=== PATIENT | male | born 1945 | race Caucasian/White ===

== ENCOUNTER 2018-05-29 09:48 | Emergency (ER) | payer MEDICARE ==
[~2018-05-29] VITALS: Ht 167.6 cm; Wt 62.2 kg
--- NOTE | 2018-05-29 09:50 | NUR ---
PT AMBULATES TO BED 6
[2018-05-29 09:55] VITALS: BP 133/57
[2018-05-29 10:15] VITALS: BP 133/57
--- NOTE | 2018-05-29 10:20 | NUR ---
BIB with c/o lt rib pain s/p fall last . 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 VSS; PATIENT POSITIONED FOR COMFORT; HOB ELEVATED; BEDRAILS UP X1; BED DOWN. ER MD MADE AWARE OF PT STATUS.
--- NOTE | 2018-05-29 10:37 | NUR ---
Patient being evaluated by physician at bedside.
--- NOTE | 2018-05-29 10:55 | NUR ---
PT TAKEN TO XRAY VIA WHEELCHAIR
[2018-05-29] MEDS ORDERED: IBUPROFEN 800 MG TAB PO ONE (12:10)
== END 2018-05-29 12:20 | disposition home or self-care (01) ==
LOC: MED 09:48
DX: S22.32XA Fracture of one rib, left side, initial encounter for closed fracture (principal); Z85.46 Personal history of malignant neoplasm of prostate; W18.30XA Fall on same level, unspecified, initial encounter; Y93.89 Activity, other specified; Y92.89 Other specified places as the place of occurrence of the external cause; Y99.8 Other external cause status
CPT/HCPCS: 71101; 99283

== ENCOUNTER 2018-05-30 15:01 | Emergency (ER) | payer MEDICARE ==
[~2018-05-30] VITALS: Ht 170.2 cm; Wt 65.8 kg
[2018-05-30 15:10] VITALS: BP 121/65
--- NOTE | 2018-05-30 15:16 | NUR ---
PT AMBULATED TO ER BED 06
--- NOTE | 2018-05-30 15:22 | NUR ---
PATIENT SEEN HERE TWO DAYS AGO FOR RIB FRACTURE WITH X RAYS AND PO MOTRIN. STILL HAVING PAIN. PATIENT IS DEAF AND COMMUNICATES BY WRITING.
[2018-05-30] MEDS ORDERED: MORPHINE SULFATE 4 MG/ML SYR IM ONE (15:25)
--- NOTE | 2018-05-30 15:28 | NUR ---
BIB . COMPLAINING OF chest/RIB pain, left side 5th intercostal space. DENIES N/V/D; SKIN IS PINK/WARM/DRY; AAOX4 WITH EVEN AND STEADY GAIT; LUNGS CLEAR BL; HR EVEN AND REGULAR; PT DENIES ANY FEVER, CP, SOB, OR COUGH AT THIS TIME; PATIENT STATES PAIN OF 0/10 AT THIS TIME; VSS; PATIENT POSITIONED FOR COMFORT; HOB ELEVATED; BEDRAILS UP X2; BED DOWN. ER MD MADE AWARE OF PT STATUS.
[2018-05-30 15:56] VITALS: BP 121/65
== END 2018-05-30 15:57 | disposition home or self-care (01) ==
LOC: MED 15:01
DX: S22.32XA Fracture of one rib, left side, initial encounter for closed fracture (principal); Z85.46 Personal history of malignant neoplasm of prostate; X58.XXXA Exposure to other specified factors, initial encounter; Y93.89 Activity, other specified; Y92.89 Other specified places as the place of occurrence of the external cause; Y99.8 Other external cause status
CPT/HCPCS: 96372; 99283; J2270

== ENCOUNTER 2018-09-23 09:39 | Inpatient (IN) | payer MEDICARE ==
[~2018-09-23] VITALS: Ht 167.6 cm; Wt 60.8 kg
--- NOTE | 2018-09-23 09:43 | NUR ---
PT AMBULATED TO ER BED 8 AT THIS TIME.
[2018-09-23 09:50] VITALS: BP 129/64
--- NOTE | 2018-09-23 10:00 | NUR ---
HARD OF HEARING 73 YR OLD M BIB WITH C/O CONSTIPATION FOR ABOUT A WK W ABOMINAL PAIN 8/10. PER PT HAD A SMALL DIARRHEA TODAY . DENIES N/V/D; SKIN IS PINK/WARM/DRY; AAOX4 WITH EVEN AND STEADY GAIT; LUNGS CLEAR BL; HR EVEN AND REGULAR; PT DENIES ANY FEVER, CP, SOB, OR COUGH AT THIS TIME; PATIENT STATES PAIN OF 8/10 AT THIS TIME; VSS; PATIENT POSITIONED FOR COMFORT; HOB ELEVATED; BEDRAILS UP X2; BED DOWN. ER MD MADE AWARE OF PT STATUS. AT BEDSIDE.
--- NOTE | 2018-09-23 10:50 | NUR ---
Dr. Kirkpatrick evaluating patient at bedside.
[2018-09-23] MEDS ORDERED: MORPHINE SULFATE 4 MG/ML SYR IVP ONE (11:05)
[2018-09-23 11:22] LABS: BASOPHILS % (AUTO) 0.5 % (0.0-2.0); EOSINOPHILS % (AUTO) 0.2 % (0.0-4.0); HEMATOCRIT 44.1 % (36-52); HEMOGLOBIN 14.9 g/dL (12.0-18.0); LYMPHOCYTES # (AUTO) 1.5 K/uL (2.0-11.5); MEAN CORPUSCULAR HEMOGLOBIN 29 pg (27-31); MEAN CORPUSCULAR HGB CONC 34 g/dL (33-37); MEAN CORPUSCULAR VOLUME 87.1 fL (80-94); MONOCYTES # (AUTO) 0.9 K/uL (0.8-1.0); MONOCYTES % (AUTO) 10.2 % (1.7-9.3); NEUTROPHILS # (AUTO) 6.7 K/uL (1.8-7.7); NEUTROPHILS % (AUTO) 73.1 % (42.2-75.2); PLATELET COUNT (AUTO) 341 K/uL (140-450); RED BLOOD CELL COUNT(AUTO) 5.06 MIL/uL (4.20-6.10); RED CELL DISTRIBUTION WIDTH 13.8 % (11.6-13.7); WHITE BLOOD COUNT (AUTO) 9.2 K/uL (4.8-10.8)
[2018-09-23 11:35] LABS: ALBUMIN 3.6 g/dL (3.4-5.0); ANION GAP 12.8 (8-16); ASPARTATE AMINOTRANSFERASE 20 U/L (15-37); CARBON DIOXIDE 29.2 mmol/L (21-32); CHLORIDE 99 mmol/L (98-107); CREATININE 0.8 mg/dL (0.7-1.3); GLUCOSE 119 mg/dL (74-106); LIPASE 96 U/L (73-393); SODIUM SERUM 138 mmol/L (136-145); TOTAL BILIRUBIN 0.9 mg/dL (0.0-1.0); UREA NITROGEN, BLOOD 15 mg/dL (7-18)
--- NOTE | 2018-09-23 12:30 | NUR ---
PT RESTING IN BED, STATED PAIN RELIEVED. AT BEDSIDE.
--- NOTE | 2018-09-23 13:05 | NUR ---
CT CRETICAL REPORT GIVEN TO DR. DELAROSA.
[2018-09-23] MEDS ORDERED: NACL 0.9% 1,000 ML IV ONE (13:30)
[2018-09-23 13:46] LABS: APPEARANCE,URINE CLEAR (CLEAR); BILIRUBIN,URINE NEGATIVE (NEGATIVE); BLOOD, URINE NEGATIVE (NEGATIVE); COLOR,URINE YELLOW (YELLOW); LEUKOCYTE ESTERASE ,URINE NEGATIVE (NEGATIVE); NITRITE, URINE NEGATIVE (NEGATIVE); UGLUCOSE NEGATIVE (NEGATIVE)
[2018-09-23 15:40] VITALS: BP 131/62
--- NOTE | 2018-09-23 15:40 | NUR ---
RECEIVED BEDSIDE REPORT FROM ER NURSE TYRESE. PT STABLE, AWAKE, AND ALERT AND ORIENTED X4. NO SIGNS OF DISTRESS NOTED. NO REDNESS, SWELLING, OR INFLAMMATION NOTED ON IV SITE. BED IN LOWEST POSITION. CALL SOLIMAN WITHIN REACH. SAFETY MEASURES IN PLACE. PLAN OF CARE REVIEWED. FAMILY AT THE BEDSIDE.
--- NOTE | 2018-09-23 15:40 | NUR ---
PT AWAKE, ALERT. TRANSFERRED TO [facility] [address]. REPORT GIVEN TO MARY KAUFMAN. WITH PT. PT WALKED FROM HALLWAY TO ROOM.
[2018-09-23] MEDS ORDERED: DEXT 5% /NACL 0.9% 1,000 ML IV SCH (16:10)
[2018-09-23] MEDS ORDERED: ONDANSETRON 4 MG/2 ML VIAL IVP PRN (16:10)
--- NOTE | 2018-09-23 17:00 | NUR ---
PT STABLE, NO SIGNS OF DISTRESS NOTED. NO OTHER NEEDS AT THIS TIME.
[2018-09-23] MEDS: AMPICILLIN/SULBACTAM 3 GM in NACL 0.9% 100 ML IV SCH ×2 (18:24→23:35)
--- NOTE | 2018-09-23 18:27 | NUR ---
PATIENT LYING DOWN IN BED COMFORTABLY. NO DISTRESS NOTED. FLACC 0. SCHEDULED MEDICATIONS DUE GIVEN. WILL CONTINUE TO MONITOR.
--- NOTE | 2018-09-23 19:10 | NUR ---
ENDORSED PT TO SHAE ESPARZA. PT HAYDE.
--- NOTE | 2018-09-23 19:11 | NUR ---
RECEIVED REPORT FROM DAY SHIFT NURSE MARY COELHO-SHAE AT BEDSIDE. PT RESTING IN BED, AOX40- MUTE/DEAF, ON ROOM AIR WITH RIGHT AC #20G-SL AND LEFT AC #20G. FAMILY AT BEDSIDE AND DISCUSSED PLAN OF CARE. NO S/S OF RESPIRATORY DISTRESS OR DISCOMFORT NOTED AT THIS TIME. BED IN LOWEST POSITION, BED BREAKS ON, BOTH SIDE RAILS UP. BEDSIDE TABLE AND CALL LIGHT ARE WITHIN REACH. WILL CONTINUE TO MONITOR.
[2018-09-23 20:00] VITALS: BP 135/64
--- NOTE | 2018-09-23 20:00 | NUR ---
VITAL SIGNS TAKEN AND TOLERATED WELL. NO S/S OF RESPIRATORY DISTRESS OR DISCOMFORT NOTED AT THIS TIME. WILL CONTINUE TO MONITOR.
--- NOTE | 2018-09-23 22:00 | NUR ---
PT SLEEPING AT THIS TIME. NO S/S OF RESPIRATORY DISTRESS OR DISCOMFORT NOTED AT THIS TIME. WILL CONTINUE TO MONITOR.
[2018-09-23] MEDS: MORPHINE SULFATE 2 MG/ML SYR IVP PRN (23:36)
--- NOTE | 2018-09-23 23:36 | NUR ---
SCHEDULED MEDICATION GIVEN AND TOLERATED WELL. PT C/O ABD PAIN 11/28- MEDICATED WITH MORPHINE. PT TOLERATED WELL. VITAL SIGNS TAKEN AND TOLERATED WELL. NO S/S OF RESPIRATORY DISTRESS OR DISCOMFORT NOTED AT THIS TIME. WILL CONTINUE TO MONITOR.
[2018-09-24] VITALS: BP 119/59
--- NOTE | 2018-09-24 01:00 | NUR ---
ASSISTED PT TO USE URINAL. 200ML OUTPUT. NO S/S OF RESPIRATORY DISTRESS OR DISCOMFORT NOTED AT THIS TIME. WILL CONTINUE TO MONITOR.
--- NOTE | 2018-09-24 02:00 | NUR ---
PT SLEEPING AT THIS TIME. NO S/S OF RESPIRATORY DISTRESS OR DISCOMFORT NOTED AT THIS TIME. WILL CONTINUE TO MONITOR.
--- NOTE | 2018-09-24 04:00 | NUR ---
PT CONTINUES TO SLEEP IN BED. NO S/S OF RESPIRATORY DISTRESS OR DISCOMFORT NOTED AT THIS TIME. WILL CONTINUE TO MONITOR.
[2018-09-24] MEDS: AMPICILLIN/SULBACTAM 3 GM in NACL 0.9% 100 ML IV SCH ×3 (05:01→17:45)
--- NOTE | 2018-09-24 05:01 | NUR ---
SCHEDULED MEDICATION UNASYN GIVEN AND TOLERATED WELL. NO S/S OF RESPIRATORY DISTRESS OR DISCOMFORT NOTED AT THIS TIME. WILL CONTINUE TO MONITOR.
--- NOTE | 2018-09-24 06:56 | NUR ---
DR. DONOHUE IN TO SEE PT. SPOKE WITH PT BROTHER SVETA CASTANON ON THE PHONE REGARDING PLAN OF CARE.
--- NOTE | 2018-09-24 07:04 | NUR ---
ENDORSED PT CARE TO DAY SHIFT NURSE MARY MCNAMARA FOR CONTINUITY OF CARE.
--- NOTE | 2018-09-24 07:05 | NUR ---
RECEIVED BEDSIDE REPORT FROM SHAE ESPARZA. PT STABLE, SLEEPING, BUT EASILY AROUSABLE. NO SIGNS OF DISTRESS NOTED. DENIES PAIN OR SOB. NO REDNESS, SWELLING, OR INFLAMMATION NOTED ON IV SITE. CALL SOLIMAN WITHIN REACH. BED IN LOWEST POSITION. SAFETY MEASURES IN PLACE. PLAN OF CARE REVIEWED.
[2018-09-24 07:29] LABS: BASOPHILS % (AUTO) 0.5 % (0.0-2.0); EOSINOPHILS # (AUTO) 0.1 K/uL (0-0.4); EOSINOPHILS % (AUTO) 0.6 % (0.0-4.0); HEMOGLOBIN 14.5 g/dL (12.0-18.0); LYMPHOCYTES # (AUTO) 1.7 K/uL (2.0-11.5); LYMPHOCYTES % (AUTO) 19.8 % (20.5-51.1); MEAN CORPUSCULAR HEMOGLOBIN 30 pg (27-31); MEAN CORPUSCULAR HGB CONC 34 g/dL (33-37); MONOCYTES % (AUTO) 11.5 % (1.7-9.3); NEUTROPHILS # (AUTO) 5.7 K/uL (1.8-7.7); NEUTROPHILS % (AUTO) 67.6 % (42.2-75.2); PLATELET COUNT (AUTO) 331 K/uL (140-450); RED BLOOD CELL COUNT(AUTO) 4.83 MIL/uL (4.20-6.10); RED CELL DISTRIBUTION WIDTH 13.7 % (11.6-13.7); WHITE BLOOD COUNT (AUTO) 8.4 K/uL (4.8-10.8)
[2018-09-24 08:00] VITALS: BP 156/67
--- NOTE | 2018-09-24 08:25 | NUR ---
PATIENT HAS BEEN SCREENED AND CATEGORIZED MODERATE NUTRITION RISK. PATIENT WILL BE SEEN WITHIN 3-5 DAYS OF ADMISSION. 09/25/18-09/27/[address]
[2018-09-24 08:49] LABS: ASPARTATE AMINOTRANSFERASE 17 U/L (15-37); SODIUM SERUM 140 mmol/L (136-145); TOTAL BILIRUBIN 1.2 mg/dL (0.0-1.0)
[2018-09-24] MEDS: KCL 20 MEQ/WATER INJ PREMIX 100 ML IV SCH ×2 (08:57→11:45)
[2018-09-24] MEDS: MORPHINE SULFATE 2 MG/ML SYR IVP PRN (08:58)
[2018-09-24] MEDS ORDERED: POTASSIUM CHL 40 MEQ/ D5-1/2NS 1,000 ML IV SCH (09:00)
--- NOTE | 2018-09-24 09:00 | NUR ---
ADMINISTERED SCHEDULED MEDICATION AND PRN MORPHINE FOR 7/10 ABDOMINAL PAIN. PT TOLERATED WELL.
[2018-09-24] MEDS ORDERED: SODIUM PHOSPHATE 118 ML ENEM RC SCH (09:04)
[2018-09-24 09:10] LABS: ANION GAP 15.2 (8-16); CARBON DIOXIDE 28.3 mmol/L (21-32); CHLORIDE 99 mmol/L (98-107); GLUCOSE 113 mg/dL (74-106); POTASSIUM 2.5 mmol/L (3.5-5.1); UREA NITROGEN, BLOOD 12 mg/dL (7-18)
[2018-09-24 09:11] LABS: ALBUMIN 3.3 g/dL (3.4-5.0); CREATININE 0.7 mg/dL (0.7-1.3)
[2018-09-24] MEDS ORDERED: fentaNYL 0.05 MG/ML VIAL ONE (09:37)
[2018-09-24] MEDS ORDERED: MIDAZOLAM 2 MG/2 ML VIAL ONE ×2 (09:37→09:38)
[2018-09-24] MEDS: POTASSIUM CHL 20MEQ/D5-NS 1,000 ML IV SCH ×3 (09:42→23:23)
--- NOTE | 2018-09-24 09:47 | NUR ---
ADMINISTERED SCHEDULED MEDICATION, PT TOLERATED WELL. NO OTHER NEEDS AT THIS TIME.
[2018-09-24] MEDS: MAGNESIUM CITRATE 300 ML BTL PO SCH ×2 (10:20→10:30)
[2018-09-24 11:00] VITALS: BP 118/61
--- NOTE | 2018-09-24 11:00 | NUR ---
PT BACK FROM OR, VITALS STABLE.
[2018-09-24] MEDS ORDERED: fentaNYL 0.05 MG/ML VIAL IVP ONE (11:25)
[2018-09-24] MEDS ORDERED: MIDAZOLAM 2 MG/2 ML VIAL IVP ONE (11:25)
--- NOTE | 2018-09-24 11:46 | NUR ---
2ND BAG OF K-RIDER ADMINISTERED PER MD ORDER.
[2018-09-24] MEDS: SENNA 8.6 MG TAB PO SCH ×3 (13:23→20:18)
[2018-09-24] MEDS: POLYETHYLENE GLYCOL 17 GM/PKT PO SCH ×3 (13:24→20:17)
--- NOTE | 2018-09-24 13:32 | NUR ---
ADMINISTERED SCHEDULED MEDICATIONS, PT TOLERATED WELL. NO OTHER NEEDS AT THIS TIME.
--- NOTE | 2018-09-24 15:15 | NUR ---
PT REPOSITIONED, LINENS CHANGED.
[2018-09-24 16:00] VITALS: BP 110/54
[2018-09-24] MEDS ORDERED: MAGNESIUM CITRATE 300 ML BTL PO SCH (16:00)
--- NOTE | 2018-09-24 16:30 | NUR ---
VITAL SIGNS TAKEN, PT STABLE. FAMILY AT THE BEDSIDE.
--- NOTE | 2018-09-24 16:46 | NUR ---
ADMINISTERED SCHEDULED MEDICATIONS, PT TOLERATED WELL.
--- NOTE | 2018-09-24 17:54 | NUR ---
ADMINISTERED SCHEDULED MEDICATIONS, PT TOLERATED WELL.
--- NOTE | 2018-09-24 19:14 | NUR ---
ENDORSED PT TO SHAE ESPARZA FOR CONTINUITY OF CARE. PT STABLE.
[2018-09-24 20:00] VITALS: BP 119/65
--- NOTE | 2018-09-24 20:00 | NUR ---
VITAL SIGNS TAKEN AND TOLERATED WELL. NO S/S OF RESPIRATORY DISTRESS OR DISCOMFORT NOTED AT THIS TIME. WILL CONTINUE TO MONITOR.
[2018-09-24] MEDS: POTASSIUM CHLORIDE 20% 40 MEQ/15 ML UDC PO SCH (20:17)
--- NOTE | 2018-09-24 20:18 | NUR ---
SCHEDULED MEDICATIONS GIVEN AND TOLERATED WELL. NO S/S OF RESPIRATORY DISTRESS OR DISCOMFORT NOTED AT THIS TIME. WILL CONTINUE TO MONITOR.
--- NOTE | 2018-09-24 22:00 | NUR ---
ASSISTED PT TO USE BEDSIDE COMMODE. PT HAD ONE MODERATE SIZE, SOFT AND FORM BROWN BM. NO S/S OF RESPIRATORY DISTRESS OR DISCOMFORT NOTED AT THIS TIME. WILL CONTINUE TO MONITOR.
[2018-09-25] VITALS: BP 118/62
--- NOTE | 2018-09-25 | NUR ---
VITAL SIGNS TAKEN AND TOLERATED WELL. NO S/S OF RESPIRATORY DISTRESS OR DISCOMFORT NOTED AT THIS TIME. WILL CONTINUE TO MONITOR.
[2018-09-25] MEDS: AMPICILLIN/SULBACTAM 3 GM in NACL 0.9% 100 ML IV SCH ×2 (00:11→05:05)
--- NOTE | 2018-09-25 00:11 | NUR ---
SCHEDULED MEDICATION UNASYN GIVEN AND TOLERATED WELL. NO S/S OF RESPIRATORY DISTRESS OR DISCOMFORT NOTED AT THIS TIME. WILL CONTINUE TO MONITOR.
--- NOTE | 2018-09-25 02:00 | NUR ---
PT CONTINUES TO SLEEP IN BED. NO S/S OF RESPIRATORY DISTRESS OR DISCOMFORT NOTED AT THIS TIME. WILL CONTINUE TO MONITOR.
--- NOTE | 2018-09-25 04:00 | NUR ---
PT CONTINUES TO SLEEP IN BED. NO S/S OF RESPIRATORY DISTRESS OR DISCOMFORT NOTED AT THIS TIME. WILL CONTINUE TO MONITOR.
--- NOTE | 2018-09-25 05:05 | NUR ---
SCHEDULED MEDICATION GIVEN AND TOLERATED WELL. NO S/S OF RESPIRATORY DISTRESS OR DISCOMFORT NOTED AT THIS TIME. WILL CONTINUE TO MONITOR.
--- NOTE | 2018-09-25 06:00 | NUR ---
PT RESTING IN BED. NO S/S OF RESPIRATORY DISTRESS OR DISCOMFORT NOTED AT THIS TIME. WILL CONTINUE TO MONITOR.
--- NOTE | 2018-09-25 07:05 | NUR ---
Bedside report given to pm nurse Opal. Addendum: 09/25/18 at 1927 by Tika Wells RN Wrong time input. Pls omit above note.
--- NOTE | 2018-09-25 07:14 | NUR ---
ENDORSED PT CARE TO DAY SHIFT NURSE VALENTINA-RN FOR CONTINUITY OF CARE.
--- NOTE | 2018-09-25 07:15 | NUR ---
Received bedside report from pm nurse Opal. Pt awake, FLACC 0, no signs of distress. Call light within reach.
[2018-09-25 08:00] VITALS: BP 124/55
[2018-09-25 08:01] LABS: BASOPHILS % (AUTO) 0.5 % (0.0-2.0); EOSINOPHILS # (AUTO) 0.1 K/uL (0-0.4); HEMATOCRIT 40.1 % (36-52); HEMOGLOBIN 13.9 g/dL (12.0-18.0); LYMPHOCYTES # (AUTO) 1.4 K/uL (2.0-11.5); LYMPHOCYTES % (AUTO) 16.1 % (20.5-51.1); MEAN CORPUSCULAR HEMOGLOBIN 30 pg (27-31); MEAN CORPUSCULAR HGB CONC 35 g/dL (33-37); MEAN CORPUSCULAR VOLUME 86.4 fL (80-94); MONOCYTES # (AUTO) 0.8 K/uL (0.8-1.0); MONOCYTES % (AUTO) 8.7 % (1.7-9.3); NEUTROPHILS # (AUTO) 6.5 K/uL (1.8-7.7); NEUTROPHILS % (AUTO) 73.7 % (42.2-75.2); PLATELET COUNT (AUTO) 316 K/uL (140-450); RED BLOOD CELL COUNT(AUTO) 4.65 MIL/uL (4.20-6.10); RED CELL DISTRIBUTION WIDTH 13.7 % (11.6-13.7); WHITE BLOOD COUNT (AUTO) 8.8 K/uL (4.8-10.8)
[2018-09-25 08:19] LABS: ANION GAP 11.2 (8-16); CARBON DIOXIDE 31.2 mmol/L (21-32); CHLORIDE 105 mmol/L (98-107); CREATININE 0.7 mg/dL (0.7-1.3); GLUCOSE 103 mg/dL (74-106); POTASSIUM 3.4 mmol/L (3.5-5.1); SODIUM SERUM 144 mmol/L (136-145); UREA NITROGEN, BLOOD 12 mg/dL (7-18)
[2018-09-25] MEDS: POTASSIUM CHLORIDE 20% 40 MEQ/15 ML UDC PO SCH ×2 (09:26→20:57)
[2018-09-25] MEDS: SENNA 8.6 MG TAB PO SCH (09:26)
[2018-09-25] MEDS: POLYETHYLENE GLYCOL 17 GM/PKT PO SCH (09:27)
[2018-09-25] MEDS: POTASSIUM CHL 20MEQ/D5-NS 1,000 ML IV SCH (09:36)
--- NOTE | 2018-09-25 10:00 | NUR ---
Dr. Brennan at bedside assessing pt.
--- NOTE | 2018-09-25 10:15 | NUR ---
Pt with small amt loose brown BM in commode. Pt able to perform adequate pericare independently. No c/o discomfort. Commode emptied & cleaned. Bed alarm on. Call light within reach. Right AC IV intact with ongoing D5NS + K20mEq @ 70ml/hr.
--- NOTE | 2018-09-25 14:40 | NUR ---
Encouraged pt to amb. IVF held at this time. Pt amb around unit with steady gait, with pt. No signs of discomfort.
--- NOTE | 2018-09-25 15:00 | NUR ---
Pt back to bed. IVF resumed. Pt cheerful, no signs of distress, no c/o discomfort. Call light within reach. at bedside.
[2018-09-25 16:00] VITALS: BP 107/49
--- NOTE | 2018-09-25 18:15 | NUR ---
Received call from Dr Singleton with order to obtain consent for surgery tomorrow, & initiate bowel prep (see orders for details) once consent is signed. Orders noted & carried out. Pt notified, writes that he understands the planned procedure explained by doctor & agree with plan of care.
[2018-09-25] MEDS ORDERED: metroNIDAZOLE 500 MG TAB PO SCH ×2 (18:25→20:00)
[2018-09-25] MEDS ORDERED: NEOMYCIN 500 MG TAB PO ONE ×2 (18:25→20:00)
[2018-09-25] MEDS ORDERED: BOWEL EVACUANT DRINK 4,000 ML PDS PO ONE (18:25)
--- NOTE | 2018-09-25 18:45 | NUR ---
Sister at bedside requesting to speak with Dr Singleton re: sx procedure for tomorrow. Per sister, pt is unsure about surgery. Bowel prep & prophylactic neomycin & flagyl not initiated. Dr Singleton paged, awaiting call back to speak with pt's sister.
--- NOTE | 2018-09-25 19:05 | NUR ---
Bedside report given to pm nurse
--- NOTE | 2018-09-25 19:06 | NUR ---
RECEIVED REPORT FROM DAY SHIFT NURSE VALENTINA-RN AT BEDSIDE. PT RESTING IN BED WITH FAMILY AT BEDSIDE, AOX40- MUTE/DEAF, ON ROOM AIR WITH RIGHT AC #20G-SL AND LEFT AC #20G. FAMILY AT BEDSIDE AND DISCUSSED PLAN OF CARE. NO S/S OF RESPIRATORY DISTRESS OR DISCOMFORT NOTED AT THIS TIME. BED IN LOWEST POSITION, BED BREAKS ON, BOTH SIDE RAILS UP. BEDSIDE TABLE AND CALL LIGHT ARE WITHIN REACH. WILL CONTINUE TO MONITOR.
[2018-09-25 20:00] VITALS: BP 110/47
--- NOTE | 2018-09-25 20:00 | NUR ---
VITAL SIGNS TAKEN AND TOLERATED WELL. NO S/S OF RESPIRATORY DISTRESS OR DISCOMFORT NOTED AT THIS TIME. WILL CONTINUE TO MONITOR.
--- NOTE | 2018-09-25 20:25 | NUR ---
DR JETT NOTIFIED THAT PT REFUSING SURGERY IN THE MORNING, STATED THAT NOTIFY THE PRIMARY DOCTOR THAT PT REFUSED SURGERY.
--- NOTE | 2018-09-25 20:58 | NUR ---
SCHEDULED MEDICATION GIVEN AND TOLERATED WELL. NO S/S OF RESPIRATORY DISTRESS OR DISCOMFORT NOTED AT THIS TIME. WILL CONTINUE TO MONITOR.
[2018-09-25] MEDS ORDERED: SENNA 8.6 MG TAB PO SCH (21:00)
--- NOTE | 2018-09-25 21:15 | NUR ---
SPOKE WITH RODNEY WILDER WHO IS ON-CALL FOR DR. ANN AND IS AWARE THAT PT HAS REFUSED SURGERY TOMORROW. NO ADDITIONAL ORDERS.
--- NOTE | 2018-09-25 22:00 | NUR ---
PT SLEEPING IN BED. NO S/S OF RESPIRATORY DISTRESS OR DISCOMFORT NOTED AT THIS TIME. WILL CONTINUE TO MONITOR.
[2018-09-26] VITALS: BP 108/49
--- NOTE | 2018-09-26 | NUR ---
VITAL SIGNS TAKEN AND TOLERATED WELL. NO S/S OF RESPIRATORY DISTRESS OR DISCOMFORT NOTED AT THIS TIME. WILL CONTINUE TO MONITOR.
[2018-09-26] MEDS ORDERED: metroNIDAZOLE 500 MG TAB PO SCH (02:00)
[2018-09-26] MEDS ORDERED: NEOMYCIN 500 MG TAB PO ONE (02:00)
[2018-09-26] MEDS: POTASSIUM CHL 20MEQ/D5-NS 1,000 ML IV SCH (02:00)
--- NOTE | 2018-09-26 02:00 | NUR ---
PT SLEEPING IN BED. NO S/S OF RESPIRATORY DISTRESS OR DISCOMFORT NOTED AT THIS TIME. WILL CONTINUE TO MONITOR.
--- NOTE | 2018-09-26 04:00 | NUR ---
PT CONTINUES TO SLEEP IN BED. NO S/S OF RESPIRATORY DISTRESS OR DISCOMFORT NOTED AT THIS TIME. WILL CONTINUE TO MONITOR.
--- NOTE | 2018-09-26 06:00 | NUR ---
PT CONTINUES TO SLEEP IN BED. NO S/S OF RESPIRATORY DISTRESS OR DISCOMFORT NOTED AT THIS TIME. WILL CONTINUE TO MONITOR.
[2018-09-26 06:48] LABS: CARBON DIOXIDE 27.7 mmol/L (21-32); CHLORIDE 106 mmol/L (98-107); CREATININE 0.6 mg/dL (0.7-1.3); GLUCOSE 114 mg/dL (74-106); POTASSIUM 3.7 mmol/L (3.5-5.1); SODIUM SERUM 141 mmol/L (136-145); UREA NITROGEN, BLOOD 10 mg/dL (7-18)
--- NOTE | 2018-09-26 07:04 | NUR ---
ENDORSED PT CARE TO DAY SHIFT NURSE ROGERIO FOR CONTINUITY OF CARE.
--- NOTE | 2018-09-26 07:13 | NUR ---
RECEIVED PT FROM DIAL EQUIPMENT ENGINEER NURSEVILMA, PT IS AWAKE AND LYING ON THE BED, FALL AND SAFETY PRECAUTION ENFORCED, SIDE RAILS ARE UP AND CALL LIGHT WITHIN REACH, PT HAS PERIPHERAL LINES ON THE LEFT AC G.20, ON SALINE LOCK AND ON THE RT AC G.20 WITH DEXTROSE.15%, CL INFUSING AT 70ML.HR, PT IS DEAF AND MUTE. NO SIGN OF DISTRESS NOTED AND WILL MONITOR PT.
[2018-09-26 08:00] VITALS: BP 105/54
--- NOTE | 2018-09-26 08:28 | NUR ---
PT IS AWAKE AND SEATED ON THE BED WITH SISTER AND BROTHER IN LAW ON THE BEDSIDE, PT DENIES PAIN AND PT AND FAMILY SAID THAT PT DOES NOT WANT ANY SURGERY, PER NIGHT NURSE ENDORSEMENT AND INTERPRETED BY THE FAMILY WELL THRU SIGN LANGUAGE TO PT. WILL NOTIFY MD AND CONTINUE TO MONITOR PT.
--- NOTE | 2018-09-26 08:31 | NUR ---
PAGED DR. ANN REGARDING PT'S AM MEDICATION OF KCL LIQUID 40MEQ, AM LAB SHOWS K LEVEL IS 34.7, AWAITING MD CALL BACK.
--- NOTE | 2018-09-26 08:44 | NUR ---
RECEIVED A CALL BACK FROM IN BEHALF OF DR. ANN'S PT, ASKED ME IF KCL 40MEQ LIQUID WILL STILL BE GIVEN TO PT DESPITE THE K VALUE TODAY OF 3.7 AND SAID, "YES", ACKNOWLEDGED AND WILL CARRY OUT TELEPHONE ORDER OF DR. JONES. [place]
[2018-09-26] MEDS ORDERED: POLYETHYLENE GLYCOL 17 GM/PKT PO SCH (09:00)
[2018-09-26] MEDS: POTASSIUM CHLORIDE 20% 40 MEQ/15 ML UDC PO SCH (10:34)
--- NOTE | 2018-09-26 11:15 | NUR ---
DR. JONES CAME TO THE PT'S ROOM AND SPOKE TO PT, INFORMED PT THAT HE WILL BE DISCHARGED TODAY AND PT NODDED SIGNS OF UNDERSTANDING.
--- NOTE | 2018-09-26 15:55 | NUR ---
DISCHARGED PT WITH SISTER, IV LINES AND ARM BAND REMOVED, DISCHARGED TEACHINGS GIVEN AND PT VERBALIZED UNDERSTANDING PER SIGN GRAIN AND YEAST PLANTS SUPERVISOR. VITAL SIGNS TAKEN AND IS STABLE, PT DENIES PAIN AND IS STABLE AT TIME.
== END 2018-09-26 15:55 | disposition home or self-care (01) | DRG 390 ==
LOC: MED 09:39 → MTU 15:01
PROVIDERS: ADMIT Internal Medicine; ATTEND Internal Medicine
PROC: 0D7N8ZZ Dilation of Sigmoid Colon, Via Natural or Artificial Opening Endoscopic (ICD-10-PCS; principal; 2018-09-24 09:45)
DX: K56.2 Volvulus (principal); E87.6 Hypokalemia; H91.90 Unspecified hearing loss, unspecified ear; K56.41 Fecal impaction; H91.3 Deaf nonspeaking, not elsewhere classified; R94.8 Abnormal results of function studies of other organs and systems; I10 Essential (primary) hypertension; Z85.46 Personal history of malignant neoplasm of prostate
CPT/HCPCS: 36415; 74018; 74021; 80048; 80053; 81003; 83605; 83690; 83735; 85025; 86886; 86900; 86901; 87081; 96361; 96374; 99291; J0295; J2250; J2270; J3010; J3480; J7030; J7042; Q0092; Q9967

== ENCOUNTER 2020-07-08 10:30 | Inpatient (IN) | payer MEDICARE, SELFPAY ==
[~2020-07-08] VITALS: Ht 165.1 cm; Wt 59.9 kg
--- NOTE | 2020-07-08 10:42 | NUR ---
Patient ambulated to bed 4. RN evaluating the patient at bedside.
[2020-07-08 10:43] VITALS: BP 130/84
[2020-07-08] MEDS ORDERED: DIPHENOXYLATE /ATROPINE 2.5 MG TAB PO ONE (11:00)
[2020-07-08] MEDS ORDERED: NACL 0.9% 1,000 ML IV ONE (11:00)
[2020-07-08 11:20] LABS: BASOPHILS % (AUTO) 0.1 % (0.0-2.0); EOSINOPHILS % (AUTO) 0.1 % (0.0-4.0); HEMATOCRIT 48.9 % (36-52); HEMOGLOBIN 16.5 g/dL (12.0-18.0); LYMPHOCYTES # (AUTO) 0.6 K/uL (2.0-11.5); LYMPHOCYTES % (AUTO) 7.3 % (20.5-51.1); MEAN CORPUSCULAR HEMOGLOBIN 30 pg (27-31); MEAN CORPUSCULAR HGB CONC 34 g/dL (33-37); MEAN CORPUSCULAR VOLUME 87.6 fL (80-94); MONOCYTES # (AUTO) 0.4 K/uL (0.8-1.0); MONOCYTES % (AUTO) 5.1 % (1.7-9.3); NEUTROPHILS # (AUTO) 7.5 K/uL (1.8-7.7); NEUTROPHILS % (AUTO) 87.4 % (42.2-75.2); PLATELET COUNT (AUTO) 391 K/uL (140-450); RED BLOOD CELL COUNT(AUTO) 5.58 MIL/uL (4.20-6.10); RED CELL DISTRIBUTION WIDTH 13.8 % (11.6-13.7); WHITE BLOOD COUNT (AUTO) 8.6 K/uL (4.8-10.8)
[2020-07-08 11:38] LABS: ALBUMIN 4.2 g/dL (3.4-5.0); ANION GAP 18.6 (8-16); ASPARTATE AMINOTRANSFERASE 36 U/L (15-37); CARBON DIOXIDE 25.6 mmol/L (21-32); CHLORIDE 95 mmol/L (98-107); CREATININE 0.7 mg/dL (0.6-1.3); GLUCOSE 142 mg/dL (74-106); POTASSIUM 3.2 mmol/L (3.5-5.1); SODIUM SERUM 136 mmol/L (136-145); TOTAL BILIRUBIN 1.4 mg/dL (0.0-1.0); UREA NITROGEN, BLOOD 12 mg/dL (7-18)
--- NOTE | 2020-07-08 12:21 | NUR ---
FAMILY CONTACT INFO SVETA CASTANON (STEP-BROTHER) [phone]
[2020-07-08] MEDS ORDERED: ONDANSETRON 4 MG/2 ML VIAL IVP PRN (13:25)
[2020-07-08] MEDS ORDERED: MORPHINE SULFATE 2 MG/ML SYR IVP PRN (13:25)
[2020-07-08 13:46] LABS: PROTHROMBIN TIME 10.5 secs (10.8-13.4)
[2020-07-08] MEDS: NACL 0.9% 1,000 ML IV SCH ×2 (14:57→23:30)
[2020-07-08] MEDS ORDERED: LIDOCAINE/EPI 1% 1:100000 20 ML VIAL INJ ONE (16:29)
--- NOTE | 2020-07-08 19:30 | NUR ---
RESTING IN BED WITH EYES CLOSED. RESPIRATIONS REGULAR AND UNLABORED. SKIN IS WARM AND DRY.
--- NOTE | 2020-07-08 19:45 | NUR ---
REPORT CALLED TO SHAE BRITTON
--- NOTE | 2020-07-08 20:15 | NUR ---
TRANSFERED TO ROOM 113 VIA GURNEY ACCOMPANIED BY EMT.
[2020-07-08 20:20] VITALS: BP 140/68
--- NOTE | 2020-07-08 20:20 | NUR ---
RECEIVED REPORT FROM ER NURSE ALEX. PT ON MED/SURG, AWAKE AND ALERT, DEAF AND MUTE, ABLE TO WRITE. ON ROOM AIR, NO S/S RESPIRATORY DISTRESS. NO C/O PAIN AT THIS TIME. IV SITE LAC 20G PATENT INTACT. SKIN WARM AND DRY, LUNGS CLEAR, BOWEL SOUNDS ACTIVE, ORIENTED PATIENT TO ROOM AND HOSPITAL. SAFETY MEASURES IN PLACE. CALL LIGHT WITHIN REACH. WILL CONTINUE TO MONITOR. VS: BP 140/68 TEMP 97.4 HR 70 O2 SAT 97% RR 18. DX: SIGMOID VOLVULUS
--- NOTE | 2020-07-08 23:59 | NUR ---
POTASSIUM 3.2, MADE AWARE. NEW ORDERS RECEIVED
[2020-07-09] MEDS: KCL 20 MEQ/WATER INJ PREMIX 200 ML IV SCH ×2 (00:17→03:54)
--- NOTE | 2020-07-09 00:28 | NUR ---
POTASSIUM 40 MEQ IV PER MD, FIRST BAG INFUSING, PT TOLERATING WELL. WILL CONTINUE TO MONITOR
--- NOTE | 2020-07-09 02:00 | NUR ---
PT AWAKE IN BED. DISCUSSED POC VIA WRITING. PT NODDED. NO S/S ACUTE DISTRESS NOTED. WILL CONTINUE TO MONITOR
--- NOTE | 2020-07-09 03:58 | NUR ---
SECOND BAG OF POTASSIUM INFUSING, WILL CONTINUE TO MONITOR PT
[2020-07-09 04:00] VITALS: BP 157/68
--- NOTE | 2020-07-09 04:17 | NUR ---
PT ASLEEP IN BED. RESPIRATIONS EVEN UNLABORED, NO S/S ACUTE DISTRESS NOTED. WILL CONTINUE TO MONITOR
[2020-07-09] MEDS: NACL 0.9% 1,000 ML IV SCH (07:00)
--- NOTE | 2020-07-09 07:06 | NUR ---
ENDORSED PT TO DAY RN FOR CONTINUITY OF CARE. PT IS IN STABLE CONDITION
--- NOTE | 2020-07-09 07:06 | NUR ---
RECEIVED REPORT FROM NIGHT NURSE FOR CONTINUITY OF CARE. PT IS STABLE, PT DEAF AND MUTE. PT HAS LAC 20G INFUSING NS AT 100ML/H, SKIN INTACT. PT HAS TRANSRECTAL TUBE IN PLACE. SAFETY MEASURES IN PLACE, WILL CONTINUE TO MONITOR.
[2020-07-09 08:00] VITALS: BP 145/73
[2020-07-09 08:30] LABS: BASOPHILS % (AUTO) 0.2 % (0.0-2.0); EOSINOPHILS % (AUTO) 0.3 % (0.0-4.0); HEMATOCRIT 46.7 % (36-52); HEMOGLOBIN 15.9 g/dL (12.0-18.0); LYMPHOCYTES # (AUTO) 0.8 K/uL (2.0-11.5); MEAN CORPUSCULAR HEMOGLOBIN 30 pg (27-31); MEAN CORPUSCULAR HGB CONC 34 g/dL (33-37); MEAN CORPUSCULAR VOLUME 87.3 fL (80-94); MONOCYTES # (AUTO) 0.9 K/uL (0.8-1.0); MONOCYTES % (AUTO) 9.6 % (1.7-9.3); NEUTROPHILS # (AUTO) 7.5 K/uL (1.8-7.7); NEUTROPHILS % (AUTO) 80.9 % (42.2-75.2); PLATELET COUNT (AUTO) 353 K/uL (140-450); RED BLOOD CELL COUNT(AUTO) 5.35 MIL/uL (4.20-6.10); RED CELL DISTRIBUTION WIDTH 13.7 % (11.6-13.7); WHITE BLOOD COUNT (AUTO) 9.3 K/uL (4.8-10.8)
--- NOTE | 2020-07-09 09:18 | NUR ---
PATIENT HAS BEEN SCREENED AND CATEGORIZED HIGH NUTRITION RISK. PATIENT WILL BE SEEN WITHIN 1-2 DAYS OF ADMISSION. 07/09/20-07/10/[address]
[2020-07-09 09:58] LABS: ALBUMIN 3.6 g/dL (3.4-5.0); ASPARTATE AMINOTRANSFERASE 26 U/L (15-37); CARBON DIOXIDE 29.2 mmol/L (21-32); CHLORIDE 98 mmol/L (98-107); CREATININE 0.6 mg/dL (0.6-1.3); GLUCOSE 89 mg/dL (74-106); MAGNESIUM 2.3 mg/dL (1.8-2.4); PHOSPHORUS 2.6 mg/dL (2.5-4.9); POTASSIUM 3.2 mmol/L (3.5-5.1); SODIUM SERUM 138 mmol/L (136-145); TOTAL BILIRUBIN 1.3 mg/dL (0.0-1.0); UREA NITROGEN, BLOOD 12 mg/dL (7-18)
--- NOTE | 2020-07-09 10:30 | NUR ---
SOCIAL WORK NOTE: Patient's Orientation Unable To Assess Information Provided By SCOTT CASTANON - SISTER Comments SW WAS UNABLE TO MEET PATIENT AT BEDSIDE TO COMPLETE ASSESSMENT. SW COMPLETED ASSESSMENT WITH SISTER. Grill Cook, Realtionship and Phone Number SCOTT CASTANON SISTER [phone] Healthcare Power of Game Farm Helper No Does Patient Have a POLST No Identifying Problems No Social Work Triggers Is A Social Work Consult Needed No Mandate Report Filed No Explanation Of Identifying Problems PATIENT IS A 75-YEAR-OLD MALE ADMITTED FOR SIGMOID VOLVULUS. PATIENT HAS PMHX OF PROSTATE CANCER. Admitted From Home Pre-Admission Level Of Functioning Status Independent/Ambulatory Prior Resources/Services Used In Last 12 Months No Prior Resources Used Prior DME No Prior DME Used Dialysis Comments N/A Living Situation Apartment Lives With Spouse Other Living Situation/Comment PER SISTER, PATIENT LIVES WITH TREMAINE PENA. Patient Had Caregiver No Home Support No Caregiver Issues Financial Issues No Known Financial Issue Referral To The Financial Counselor Needed No Factors/Needs No D/C Needs Identified Pt/Rep Participated In Discharge Plan Yes Patient/Family Agress With Discharge Plan Yes Discharge Plan Comments TENTATIVE DISCHARGE PLAN IS FOR PATIENT TO RETURN HOME. DC Plan Status Initiated
--- NOTE | 2020-07-09 13:31 | NUR ---
RECEIVED VERBAL ORDER FROM DR DENSON FOR IV FLUIDS, D5 1/2NS WITH 20 MEQ AT 100ML/H. WILL INPUT ORDER AND CARRY IT OUT.
[2020-07-09] MEDS: POTASSIUM CHL 20 MEQ/D5-1/2NS 1,000 ML IV SCH (14:00)
[2020-07-09] MEDS ORDERED: BOWEL EVACUANT DRINK 4,000 ML PDS PO SCH (14:30)
--- NOTE | 2020-07-09 15:30 | NUR ---
ADMINISTERED SCHEDULED MEDICATION, MEDICATION EDUCATION PROVIDED. PT DEAF AND MUTE. PT TOLERATED WELL. PT IS STABLE, WILL CONTINUE TO MONITOR.
[2020-07-09] MEDS ORDERED: POTASSIUM CHLORIDE 20% 40 MEQ/15 ML UDC GT SCH (15:51)
[2020-07-09 16:00] VITALS: BP 142/90
--- NOTE | 2020-07-09 17:20 | NUR ---
ADMINISTERED SCHEDULED MEDICATION, MEDICATION EDUCATION PROVIDED. PT TOLERATED WELL. CHANGED PT'S SOILED SHEETS. PT IS STABLE, WILL CONTINUE TO MONITOR.
--- NOTE | 2020-07-09 18:29 | NUR ---
RECEIVED TORB FROM DR DENSON TO MAKE PT NPO AFTER MIDNIGHT FOR SURGERY. WILL INPUT ORDER AND CARRY IT OUT.
--- NOTE | 2020-07-09 19:20 | NUR ---
RECEIVED REPORT FROM CHULA DE LA ROSA. PT AOX4 ON ROOM AIR, DEAF AND MUTE. NO S/S RESPIRATORY DISTRESS. NO C/O PAIN AT THIS TIME. IV SITE RFA 22G, PATENT AND INTACT. SAFETY MEASURES IN PLACE. CALL LIGHT WITHIN REACH. WILL CONTINUE TO MONITOR
--- NOTE | 2020-07-09 19:20 | NUR ---
ENDORSE PT TO NIGHT NURSE FOR CONTINUITY OF CARE.
[2020-07-09 20:00] VITALS: BP 132/73
--- NOTE | 2020-07-09 21:30 | NUR ---
ASSISTED PT TO DRINK GOLYTELY, TOLERATED WELL. WILL CONTINUE TO MONITOR
--- NOTE | 2020-07-09 23:00 | NUR ---
CLEANED CHANGED REPOSITIONED PT, LIQUID STOOLS NOTED. WILL CONTINUE TO MONITOR
--- NOTE | 2020-07-10 03:49 | NUR ---
PT ASLEEP IN BED. NO S/S ACUTE DISTRESS NOTED. WILL CONTINUE TO MONITOR
[2020-07-10 04:00] VITALS: BP 146/67
--- NOTE | 2020-07-10 07:05 | NUR ---
PT OFF UNIT, PICKED UP AND TRANSFERRED FOR SURGERY BY OR NURSE. PT IS IN STABLE CONDITION, WILL ENDORSE TO DAY RN FOR CONTINUITY OF CARE.
--- NOTE | 2020-07-10 07:10 | NUR ---
REC'D REPORT FROM SENIOR SOFTWARE TEST ENGINEER NURSE, PT CURRENTLY OFF UNIT FOR SURGERY
[2020-07-10] MEDS ORDERED: FUROSEMIDE 40 MG/4 ML VIAL IVP ONE (07:38)
[2020-07-10] MEDS ORDERED: BUPIVACAINE-MPF 0.25% 30 ML VIAL INJ ONE (07:47)
[2020-07-10] MEDS ORDERED: LIDOCAINE MPF 2% 100 MG/5 ML VIAL INJ ONE (07:49)
[2020-07-10] MEDS ORDERED: GLYCOPYRROLATE 0.2 MG/ML VIAL ONE (07:49)
[2020-07-10] MEDS ORDERED: NEOSTIGMINE 1:1000 10 MG/10 ML VIAL ONE (07:49)
[2020-07-10] MEDS ORDERED: SEVOFLURANE 250 ML BTL INH ONE (07:49)
[2020-07-10] MEDS ORDERED: DEXAMETHASONE 4 MG/ML VIAL ONE (07:49)
[2020-07-10] MEDS ORDERED: ONDANSETRON 4 MG/2 ML VIAL ONE (07:49)
[2020-07-10] MEDS ORDERED: SUCCINYLCHOLINE CHLORIDE 200 MG/10 ML VIAL IVP ONE (07:49)
[2020-07-10] MEDS ORDERED: hydrALAZINE 20 MG/ML VIAL ONE (07:49)
[2020-07-10] MEDS ORDERED: ETOMIDATE 20 MG/10 ML VIAL IVP ONE (07:49)
[2020-07-10] MEDS ORDERED: ROCURONIUM 50 MG/5 ML VIAL IV ONE (07:49)
[2020-07-10] MEDS ORDERED: fentaNYL citrate 0.05 MG/ML VIAL ONE (07:49)
[2020-07-10] MEDS ORDERED: LABETALOL 100 MG/20 ML VIAL ONE (07:49)
[2020-07-10] MEDS ORDERED: HYDROcodone/APAP 5/325 MG 1 TAB TAB PO PRN (08:25)
[2020-07-10] MEDS ORDERED: HYDROmorphone 1 MG/ML AMP IVP PRN ×2 (08:25→09:15)
[2020-07-10] MEDS: GABAPENTIN 300 MG CAP PO SCH ×3 (09:00→17:59)
[2020-07-10] MEDS ORDERED: MEPERIDINE 25 MG/ML SYR IVP PRN (09:15)
[2020-07-10] MEDS ORDERED: ONDANSETRON 4 MG/2 ML VIAL IVP PRN (09:15)
[2020-07-10] MEDS: LACTATED RINGERS 1,000 ML IV SCH ×2 (09:15→17:35)
[2020-07-10] MEDS ORDERED: fentaNYL citrate 0.05 MG/ML VIAL IVP PRN (09:15)
[2020-07-10] MEDS ORDERED: diphenhydrAMINE 50 MG/ML VIAL IVP PRN (09:15)
--- NOTE | 2020-07-10 10:45 | NUR ---
REC'D PT FROM OR. PT STABLE,RA, VITAL SIGNS TAKE SEE CHART, NO SIGN OF DISTRESS. PT HAS SCD IN PLACE, VERDUGO CATHETER. 1700ML IN OR. EBL 20. HAS R. LOWER ABDOMEN HORIZONTAL 8CM, NO ENEIDA, DERMABOND.
[2020-07-10] MEDS: ACETAMINOPHEN EXTRA STRENGTH 500 MG TAB PO SCH ×3 (13:19→21:25)
[2020-07-10] MEDS: IBUPROFEN 400 MG TAB PO SCH ×3 (13:19→21:24)
[2020-07-10] MEDS: POTASSIUM CHL 20 MEQ/D5-1/2NS 1,000 ML IV SCH ×3 (14:00→20:00)
--- NOTE | 2020-07-10 15:40 | NUR ---
DC PLANNIN YRS OLD MALE PATIENT WAS ADMITTED FROM HOME WITH A DX OF SIGMOID VOLVULUS. PT HAS A HX OF MUTE AND DEAF. PT UNDERWENT SIGMOID COLECTOMY POSSIBLE OSTOMY. JENIFFER PLAN TO GO HOME WITH HOME HEALTH BRANDON TO FOLLOW Addendum: 07/12/20 at 1203 by Yasemin Almazan CM JENIFFER CONKLIN: FAXED ORDER FOR HOME HEALTH TO KELLY AT [facility] [place] [phone]. WILL FOLLOW UP. Addendum: 07/12/20 at 1244 by Yasemin Almazan CM JENIFFER CONKLIN: BRANDON MENDOZA AT [facility] PROVIDED AUTH FOR [facility] [phone]. SPOKE TO DAGOBERTO [facility] HER IT SECURITY ADMINISTRATOR IS STILL REVIEWING. Addendum: 07/12/20 at 1428 by Yasemin Almazan CM JENIFFER CONKLIN: [facility] CAN NOT ACCEPT THIS PATIENT DUE TO CONCERNS OF HIM BEING . NOTIFIED BRANDON MENDOZA AT [facility]. Addendum: 07/12/20 at 1513 by Yasemin Almazan CM JENIFFER CONKLIN: BRANDON MENDOZA PROVIDED ME WITH ANOTHER HOME HEALTH AGENCY. [employer] [phone], SPOKE TO OCTAVIO AT [facility] THEY ARE REVIEWING CLINICALS. Addendum: 07/12/20 at 4664 by Yasemin Almazan CM JENIFFER CONKLIN: FOLLOWED UP WITH OCTAVIO AT [facility] [phone] THEY ARE ABLE TO ACCEPT THIS PATIENT. SHE STATED THAT SHE ALREADY HAS AUTH. NOTIFIED SHAE MANUEL
--- NOTE | 2020-07-10 16:08 | NUR ---
07/10/20 RD INITIAL ASSESSMENT COMPLETED PLEASE REFER TO NUTRITION ASSESSMENT UNDER CARE ACTIVITY FOR ESTIMATED NUTRITIONAL NEEDS. 1. CONTINUE FULL DIET WHEN MEDICALLY APPROPRIATE 2. CONSIDER ENSURE BID 3. GRADUALLY ADVANCE TO LOW RESIDUAL SOFT DIET 4. RD TO FOLLOW-UP 2-3 DAYS, HIGH RISK TRICIA ASHBY, RD
--- NOTE | 2020-07-10 17:20 | NUR ---
PT STABLE, CURRENTLY SLEEPING, NO SIGN OF DISTRESS
--- NOTE | 2020-07-10 19:15 | NUR ---
RECEIVED BEDSIDE REPORT FROM DAY SHIFT NURSE FOR CONTINUITY OF CARE. PT IS AWAKE AND ALERT, A&OX4. PT IS DEAF AND MUTE. PAPER AT BEDSIDE FOR WRITING FOR COMMUNICATION. ON RA WITH BREATHING UNLABORED. VERDUGO CATH IN PLACE. S/P SIGMOID COLECTOMY TODAY WITH DERMABOND IN PLACE, NETWORK ADMIN. SKIN IS WARM AND DRY. PT IS STABLE. FALL PRECAUTIONS IN PLACE. SCD'S IN PLACE. PLAN OF CARE DISCUSSED.
--- NOTE | 2020-07-10 19:30 | NUR ---
ENDORSED PT TO FIELD SERVICER NURSE, PT STABLE
[2020-07-10 20:00] VITALS: BP 102/57
--- NOTE | 2020-07-10 21:30 | NUR ---
PT IS STABLE AT THIS TIME. RESTING IN SEMI FOWLERS POSITION. VERDUGO CATH IN PLACE. ASSESSED SURGICAL INCISION. NO ENEIDA, DERMABOND. PT STATES HE IS OKAY RIGHT NOW AND DOESN'T NEED ANYTHING THROUGH WRITING.
--- NOTE | 2020-07-10 23:26 | NUR ---
MADE ROUNDS ON PT. HE IS SLEEPING COMFORTABLY. NO PAIN NOTED. BED IN THE LOWEST POSITION AND CALL LIGHT WITHIN REACH. IV FLUIDS INFUSING ORDERED. WILL CONTINUE TO MONITOR.
[2020-07-11] MEDS: POTASSIUM CHL 20 MEQ/D5-1/2NS 1,000 ML IV SCH (00:21)
--- NOTE | 2020-07-11 01:29 | NUR ---
FLUIDS WERE CHANGED. IV IS STILL PATENT AND INFUSING. BED IS IN THE LOWEST POSITION. FREQUENT ROUNDS. PT IS NOT IN ANY DISTRESS.
[2020-07-11] MEDS: LACTATED RINGERS 1,000 ML IV SCH (01:55)
--- NOTE | 2020-07-11 03:30 | NUR ---
PT IS SLEEPING. NO DISTRESS NOTED. WATER WAS REFILLED. PAPER AND PEN AT BEDSIDE FOR COMMUNICATING. VERDUGO IN PLACE. IV FLUIDS INFUSING. BED IS IN THE LOWEST POSITION AND CALL LIGHT WITHIN REACH.
[2020-07-11 04:00] VITALS: BP 118/63
--- NOTE | 2020-07-11 05:30 | NUR ---
PT IS AWAKE. WRITING APPROPRIATELY. INFORMED ME THAT HE IS NOW PASSING GAS AND WOULD LIKE TO GO HOME SOON. WILL TELL DR. DENSON, SURGEON ON CASE. PT IS STABLE AT THIS TIME.
--- NOTE | 2020-07-11 06:00 | NUR ---
DR. DENSON AT BEDSIDE TO SEE PT. DR. DENSON ORDERED TO DC FLUIDS- SALINE LOCK, DC VERDUGO CATH, AND ADVANCE TO SOFT DIET. HE ALSO ORDERED PT TO PRACTICE WITH INCENTIVE SPIROMETER AND TO WALK AROUND THE [place]OR[place] FIVE TIMES TODAY. SHOWED PT HOW TO USE THE IS AND INSTRUCTIONS WERE WRITTEN DOWN FOR PT. PT DEMONSTRATED USE FOR ME. VERDUGO CATHETER WAS REMOVED. NO PAIN NOTED. WILL ENDORSE TO DAY SHIFT TO MONITOR FOR URINE OUTPUT.
[2020-07-11] MEDS: ACETAMINOPHEN EXTRA STRENGTH 500 MG TAB PO SCH ×4 (06:33→21:19)
[2020-07-11] MEDS: IBUPROFEN 400 MG TAB PO SCH ×4 (06:33→21:19)
--- NOTE | 2020-07-11 07:25 | NUR ---
RECEIVED PATIENT FROM NIGHT NURSE. PATIENT IN BED SLEEPING, CHEST NOTED RISING. NO NOTED ACUTE S/S DISTRESS. RESP EVEN AND UNLABORED ON RA. HOB ELEVATED. SAFETY MEASURES IN PLACE. CALL LIGHT WITHIN REACH. WILL CONTINUE TO MONITOR.
--- NOTE | 2020-07-11 07:30 | NUR ---
ENDORSED PT TO DAY SHIFT NURSE FOR CONTINUITY OF CARE. PT IS STABLE AT THIS TIME. INFORMED THE NURSE TO WATCH FOR URINE OUTPUT I JUST REMOVED VERDUGO. PLAN OF CARE DISCUSSED.
[2020-07-11 09:22] LABS: BASOPHILS % (AUTO) 0.3 % (0.0-2.0); EOSINOPHILS # (AUTO) 0.1 K/uL (0-0.4); EOSINOPHILS % (AUTO) 1.1 % (0.0-4.0); HEMATOCRIT 39.9 % (36-52); HEMOGLOBIN 13.5 g/dL (12.0-18.0); LYMPHOCYTES # (AUTO) 1.5 K/uL (2.0-11.5); LYMPHOCYTES % (AUTO) 18.1 % (20.5-51.1); MEAN CORPUSCULAR HEMOGLOBIN 30 pg (27-31); MEAN CORPUSCULAR HGB CONC 34 g/dL (33-37); MEAN CORPUSCULAR VOLUME 87.8 fL (80-94); MONOCYTES # (AUTO) 0.9 K/uL (0.8-1.0); MONOCYTES % (AUTO) 10.4 % (1.7-9.3); NEUTROPHILS # (AUTO) 5.9 K/uL (1.8-7.7); NEUTROPHILS % (AUTO) 70.1 % (42.2-75.2); PLATELET COUNT (AUTO) 288 K/uL (140-450); RED BLOOD CELL COUNT(AUTO) 4.55 MIL/uL (4.20-6.10); RED CELL DISTRIBUTION WIDTH 13.8 % (11.6-13.7); WHITE BLOOD COUNT (AUTO) 8.5 K/uL (4.8-10.8)
[2020-07-11] MEDS: GABAPENTIN 300 MG CAP PO SCH ×3 (09:33→16:57)
--- NOTE | 2020-07-11 09:35 | NUR ---
PATIENT SITTING UP IN BED AWAKE AND ALERT EATING BREAKFAST. PATIENT TOLERATED WELL. MORNING ROUTINE MEDICATIONS GIVEN. PATIENT TOLERATED WELL. RH 24G INTACT AND PATENT, SL. RESP EVEN AND UNLABORED. NO NOTED DISTRESS. PLAN OF CARE DISCUSSED, PATIENT NODDED UNDERSTANDING. PATIENT IS MUTE AND DEAF. COMMUNICATIONS VIA WRITING. CALL LIGHT WITHIN REACH. WILL CONTINUE TO MONITOR.
[2020-07-11 09:55] LABS: ANION GAP 5.9 (8-16); CARBON DIOXIDE 35.6 mmol/L (21-32); CHLORIDE 104 mmol/L (98-107); CREATININE 0.8 mg/dL (0.6-1.3); GLUCOSE 129 mg/dL (74-106); POTASSIUM 3.5 mmol/L (3.5-5.1); SODIUM SERUM 142 mmol/L (136-145); UREA NITROGEN, BLOOD 7 mg/dL (7-18)
--- NOTE | 2020-07-11 12:25 | NUR ---
PT IN BED SLEEPING, CHEST NOTED RISING. NO ACUTE S/S DISTRESS. CALL LIGHT WITHIN REACH. WILL CONTINUE TO MONITOR.
--- NOTE | 2020-07-11 14:35 | NUR ---
PATIENT IN BED SLEEPING, CHEST NOTED RISING. NO ACUTE S/S DISTRESS. CALL LIGHT WITHIN REACH. WILL CONTINUE TO MONITOR.
[2020-07-11 16:00] VITALS: BP 113/57
--- NOTE | 2020-07-11 18:25 | NUR ---
PATIENT ASSISTED GETTING OUT OF BED, SITTING BY BEDSIDE, WALKING TO CHAIR AND AROUND THE BED TWICE. PATIENT AMBULATING WITH SLOW AND STEADY GAIT. NO DIZZINESS REPORTED. PAIN IS TOLERABLE. DENIED OF ANY SOB. NO NOTED DISTRESS. PATIENT SITTING BY BEDSIDE EATING DINNER. CALL LIGHT WITHIN REACH. ENCOURAGED TO CALL FOR HELP GETTING INTO BED. PATIENT NODDED UNDERSTANDING.
--- NOTE | 2020-07-11 19:15 | NUR ---
ENDORSED PATIENT TO NIGHT NURSE. PATIENT IN STABLE CONDITION
--- NOTE | 2020-07-11 19:16 | NUR ---
RECEIVED BEDSIDE ENDORSEMENT FROM AM SHIFT RN. AOX4, DEAF AND MUTE, ON ROOM AIR, NO SOB, AMBULATORY, SAFETY MEASURES IN PLACE, PLAN OF CARE DISCUSSED, CALL LIGHT WITHIN REACH.
[2020-07-11 20:00] VITALS: BP 117/47
--- NOTE | 2020-07-11 21:23 | NUR ---
DUE MEDS GIVEN ORDERED, TOLERATED WELL, CALL LIGHT WITHIN REACH.
--- NOTE | 2020-07-12 | NUR ---
ASLEEP, RESPIRATION EVEN AND UNLABORED, CALL LIGHT WITHIN REACH.
[2020-07-12] MEDS: ACETAMINOPHEN EXTRA STRENGTH 500 MG TAB PO SCH ×3 (06:36→16:46)
[2020-07-12] MEDS: IBUPROFEN 400 MG TAB PO SCH ×3 (06:36→16:46)
[2020-07-12 06:41] LABS: BASOPHILS % (AUTO) 0.3 % (0.0-2.0); EOSINOPHILS # (AUTO) 0.3 K/uL (0-0.4); EOSINOPHILS % (AUTO) 4.1 % (0.0-4.0); HEMATOCRIT 42.2 % (36-52); HEMOGLOBIN 14.2 g/dL (12.0-18.0); LYMPHOCYTES # (AUTO) 1.1 K/uL (2.0-11.5); MEAN CORPUSCULAR HEMOGLOBIN 30 pg (27-31); MEAN CORPUSCULAR HGB CONC 34 g/dL (33-37); MEAN CORPUSCULAR VOLUME 88.5 fL (80-94); MONOCYTES # (AUTO) 0.6 K/uL (0.8-1.0); NEUTROPHILS # (AUTO) 5.3 K/uL (1.8-7.7); NEUTROPHILS % (AUTO) 72.6 % (42.2-75.2); PLATELET COUNT (AUTO) 285 K/uL (140-450); RED BLOOD CELL COUNT(AUTO) 4.77 MIL/uL (4.20-6.10); RED CELL DISTRIBUTION WIDTH 13.7 % (11.6-13.7); WHITE BLOOD COUNT (AUTO) 7.3 K/uL (4.8-10.8)
--- NOTE | 2020-07-12 06:42 | NUR ---
WOKE UP PT, DUE MEDS GIVEN ORDERED, TOLERATED WELL, CALL LIGHT WITHIN REACH.
--- NOTE | 2020-07-12 07:30 | NUR ---
PT STABLE, BEDSIDE ENDORSEMENT GIVEN TO AM SHIFT RN FOR CONTINUITY OF CARE.
--- NOTE | 2020-07-12 07:32 | NUR ---
RECEIVED REPORT FROM NIGHT NURSE PATIENT IS AAOX4, ON ROOM AIR, SKIN INTACT, IV INTACT ON LEFT AC S/P CT ABDOMEN AND PELVIS WITH CONTRAST, FOR CT ABDOMEN WITH OR WITHOUT CONTRAST, NO CONSENT , AMBULATORY. SAFETY MEASURES IN PLACE AND CALL LIGHT WITHIN REACH WILL CONTINUE TO MONITOR.
[2020-07-12 07:58] LABS: ANION GAP 8.1 (8-16); CARBON DIOXIDE 34.6 mmol/L (21-32); CHLORIDE 104 mmol/L (98-107); CREATININE 0.6 mg/dL (0.6-1.3); GLUCOSE 117 mg/dL (74-106); POTASSIUM 3.7 mmol/L (3.5-5.1); SODIUM SERUM 143 mmol/L (136-145); UREA NITROGEN, BLOOD 8 mg/dL (7-18)
[2020-07-12] MEDS: GABAPENTIN 300 MG CAP PO SCH ×3 (09:06→16:46)
--- NOTE | 2020-07-12 09:12 | NUR ---
MEDICATION DUE GIVEN NO DISTRESS NOTED AND DENIES PAIN. SAFETY MEASURES IN PLACE AND CALL LIGHT WITHIN REACH. WILL CONTINUE TO MONITOR.
--- NOTE | 2020-07-12 11:50 | NUR ---
MEDICATIONS DUE GIVEN TO PATIENT. NO SIGNS OF DISTRESS. PT IN STABLE CONDITION. WILL CONTINUE TO MONITOR NEEDED.
[2020-07-12 16:00] VITALS: BP 144/70
--- NOTE | 2020-07-12 16:50 | NUR ---
MEDICATIONS DUE GIVEN TO PATIENT PRIOR TO DISCHARGE TO HOME. PATIENT IS STABLE IN CONDITION. NO SIGNS OF DISTRESS NOTED. SAFETY MEASURES ARE IN PLACE. CALL LIGHT WITHIN REACH.
--- NOTE | 2020-07-12 18:00 | NUR ---
DISCHARFGED INSTRUCTIONS GIVEN TO PATIENT AT BEDSIDE AND ENCOURAGED TO FOLLOW UP WITH PCP WITH IN 3-5 DAYS AND TO SEEK MEDICAL HELP IN CASE OF EMERGENCIES, IV INTACT AND NO BLEEDING.REMOVED ID BANDS AND CHANGED PT CLOTHES TO OWN CLOTHES, ANSWERED PT QUESTION, ESCORTED PATIENT TO FRONT LOBBY VIA WHEELCHAIR, PHOTOGRAPH TAKEN, PATIENT IS GOING TO BE DISCHARGED HOME, ACCOMPANIED BY FAMILY, PT IS STABLE,
== END 2020-07-12 18:00 | disposition home health service (06) | DRG 330 ==
LOC: MED 10:30 → MMU 13:44 → MTU 20:09
PROVIDERS: ADMIT Hospitalist; ATTEND Hospitalist
PROC: 0D9Q70Z Drainage of Anus with Drainage Device, Via Natural or Artificial Opening (ICD-10-PCS; 2020-07-08)
PROC: 0DBN0ZZ Excision of Sigmoid Colon, Open Approach (ICD-10-PCS; principal; 2020-07-10 07:30)
DX: K56.2 Volvulus (principal); Q43.8 Other specified congenital malformations of intestine; E87.6 Hypokalemia; H91.3 Deaf nonspeaking, not elsewhere classified; I10 Essential (primary) hypertension; E78.5 Hyperlipidemia, unspecified; Z20.822 Contact with and (suspected) exposure to COVID-19; Z85.46 Personal history of malignant neoplasm of prostate
CPT/HCPCS: 36415; 71045; 74018; 80048; 80053; 83735; 84100; 85025; 85610; 85730; 86886; 86900; 86901; 87081; 88307; 93005; 97110; 97116; 97161-GP; 99285; J0330; J0360; J1100; J1940; J2001; J2270; J2405; J2710; J3010; J3480; J3490; U0003

== ENCOUNTER 2022-06-03 15:41 | Emergency (ER) | payer MEDICARE ==
[~2022-06-03] VITALS: Ht 177.8 cm; Wt 77.1 kg
[2022-06-03 15:45] VITALS: BP 136/62
[2022-06-03] MEDS: ACETAMINOPHEN EXTRA STRENGTH 500 MG TAB PO ONE (16:51)
[2022-06-03] MEDS ORDERED: BACI-416 TP (18:33)
[2022-06-03 19:00] VITALS: BP 134/62
== END 2022-06-03 19:07 | disposition home or self-care (01) ==
LOC: MED 15:41
DX: S80.01XA Contusion of right knee, initial encounter (principal); S60.211A Contusion of right wrist, initial encounter; S60.221A Contusion of right hand, initial encounter; S00.81XA Abrasion of other part of head, initial encounter; I10 Essential (primary) hypertension; H91.90 Unspecified hearing loss, unspecified ear; Z85.46 Personal history of malignant neoplasm of prostate; Z79.899 Other long term (current) drug therapy; W19.XXXA Unspecified fall, initial encounter; Y93.89 Activity, other specified; Y92.89 Other specified places as the place of occurrence of the external cause; Y99.8 Other external cause status
CPT/HCPCS: 70450; 70486; 72125; 73110; 73130; 73562; 90471; 90715; 99284; Q0092